=== PATIENT | female | born 1990 | race Caucasian/White ===

== ENCOUNTER 2017-06-15 23:28 | Emergency (ER) | payer OTHER ==
[2017-06-16 00:02] VITALS: BP 114/79; PULSE 82; RESP 18; TEMP 98; O2SAT 100
[2017-06-16] MEDS ORDERED: TRAMADOL HYDROCHLORIDE 50 MG TAB PO ONE (00:02)
[2017-06-16] MEDS ORDERED: CYCLOBENZAPRINE 10 MG TAB PO ONE (00:02)
[2017-06-16] MEDS ORDERED: CYCLOBENZAPRINE 10 MG TAB ONE (00:22)
[2017-06-16] MEDS ORDERED: TRAMADOL HYDROCHLORIDE 50 MG TAB ONE (00:22)
== END 2017-06-16 00:41 | disposition home or self-care (01) | DRG 552 ==
LOC: ED 23:28
DX: S13.9XXA Sprain of joints and ligaments of unspecified parts of neck, initial encounter (principal); M25.519 Pain in unspecified shoulder; V89.2XXA Person injured in unspecified motor-vehicle accident, traffic, initial encounter; R51 Headache
CPT/HCPCS: 99282

== ENCOUNTER 2018-10-25 15:27 | Emergency (ER) | payer OTHER ==
[2018-10-25 15:42] VITALS: BP 133/85; PULSE 87; RESP 20; TEMP 98; O2SAT 97
== END 2018-10-25 16:35 | disposition home or self-care (01) ==
LOC: ED 15:27
DX: S33.5XXA Sprain of ligaments of lumbar spine, initial encounter (principal)
CPT/HCPCS: 72120; 99282; 99283

== ENCOUNTER 2019-03-15 23:36 | Emergency (ER) | payer OTHER ==
[2019-03-16 00:06] VITALS: RESP 20; O2SAT 96
[2019-03-16] MEDS ORDERED: CYCLOBENZAPRINE 10 MG TAB PO ONE (00:19)
[2019-03-16] MEDS ORDERED: KETOROLAC TROMETHAMINE 30 MG/ML SOL IM ONE (00:19)
[2019-03-16] MEDS ORDERED: CYCLOBENZAPRINE 10 MG TAB ONE (00:20)
[2019-03-16] MEDS ORDERED: KETOROLAC TROMETHAMINE 30 MG/ML SOL ONE (00:20)
[2019-03-16] MEDS ORDERED: PREDNISONE 5 MG TAB ONE (00:35)
[2019-03-16] MEDS ORDERED: PREDNISONE 10 MG TAB PO SCH (00:45)
[2019-03-16 00:56] VITALS: BP 139/71; PULSE 78
== END 2019-03-16 00:50 | disposition home or self-care (01) | DRG 552 ==
LOC: ED 23:36
DX: M54.2 Cervicalgia (principal); M62.838 Other muscle spasm; R20.2 Paresthesia of skin
CPT/HCPCS: 72040; 72070; 96372; 99283; J1885; A9270-GY